=== PATIENT | male | born 1990 | race Caucasian/White ===

== ENCOUNTER 2019-08-06 03:03 | Inpatient (IN) ==
[2019-08-06] MEDS ORDERED: SODIUM CHLORIDE 0.9% 1,000 ML IV STA (03:18)
[2019-08-06] MEDS ORDERED: ONDANSETRON 4 MG/2 ML VIAL IV PRN (04:19)
[2019-08-06] MEDS ORDERED: ACETAMINOPHEN 325 MG TABLET PO PRN (04:19)
[2019-08-06] MEDS ORDERED: DEXTROSE 50% 25 GM/50 ML VIAL IV PRN (04:19)
[2019-08-06] MEDS ORDERED: GLUCAGON 1 MG VIAL IM PRN (04:19)
[2019-08-06] MEDS ORDERED: HYDROmorphone 2 MG/1 ML VIAL IV PRN (04:19)
[2019-08-06] MEDS: SODIUM CHLORIDE 0.9% 1,000 ML IV SCH ×3 (05:16→21:40)
[2019-08-06] MEDS ORDERED: SODIUM CHLORIDE 0.9% 500 ML IV ONE (05:20)
[2019-08-06 06:02] LABS: Basophils % 0.2 % (0.0-0.8); Hematocrit 43.1 VOL% (42.0-52.0); Hemoglobin 13.6 GM/DL (14.0-18.0); Immature Granulocytes % 0.5 %; Immature Granulocytes Absolute 0.08 #; Lymphocytes # 0.8 10*3/uL (1.4-4.0); Lymphocytes % 4.5 % (21.2-54.2); Mean Corpuscular HGB Conc 31.6 GM/DL (32-36); Mean Corpuscular Volume 90.7 FL (87-102); Mean Platelet Volume 11.3 FL (9.6-12.0); Monocytes % 1.8 % (1.7-12.7); Platelet Count 172 T/CUMM (130-400); Red Blood Count 4.75 MC/CUMM (3.8-5.5); Red Cell Distribution Width 15.8 % (9.3-17.3); White Blood Count 17.7 T/CUMM (4-12)
[2019-08-06] MEDS: PIPERACILLIN/TAZOBACTAM 3,375 MG in SODIUM CHLORIDE 0.9% 100 ML IV SCH ×3 (06:19→21:38)
[2019-08-06 06:22] LABS: Alanine Aminotransferase 37 U/L (16-61); Albumin 3.5 G/DL (3.4-5.0); Alkaline Phosphatase 86 U/L (45-117); Amylase 22 U/L (25-115); Aspartate Amino Transferase 37 U/L (0-37); Blood Urea Nitrogen 44 MG/DL (7-18); Estimated Glom Filtration Rate 42 ML/MIN; Glucose 131 MG/DL (74-106); Osmolality,Calculated 280.2 MOS/KG (273-304)
[2019-08-06] MEDS: INSULIN REGULAR 100 UNIT/ML SUBCUT SCH ×3 (06:23→17:53)
[2019-08-06 06:37] LABS: Band Neutrophils 10 % (0-10); Lymphocytes 2 % (20-55); Platelet Estimate Normal; Segmented Neutrophils 85 % (50-85); Total Cells Counted 100
[2019-08-06] MEDS: PANTOPRAZOLE 40 MG VIAL IV SCH (09:39)
[2019-08-06] MEDS: ENOXAPARIN 40 MG/0.4 ML SYRINGE SUBCUT SCH (21:38)
[2019-08-07] MEDS: INSULIN REGULAR 100 UNIT/ML SUBCUT SCH ×4 (00:01→17:56)
[2019-08-07] MEDS: SODIUM CHLORIDE 0.9% 1,000 ML IV SCH ×3 (04:00→23:06)
[2019-08-07] MEDS: PIPERACILLIN/TAZOBACTAM 3,375 MG in SODIUM CHLORIDE 0.9% 100 ML IV SCH ×3 (04:40→21:14)
[2019-08-07 04:49] LABS: Apearance,Urine CLEAR (Clear); Bilirubin,Urine Negative (Negative); Blood, Urine Negative (Negative); Glucose,Urine (UA) Negative (Negative); Ketones,Urine Negative (Negative); Mucus,Urine Occasional /LPF (Occasional); Nitrite,Urine Negative (Negative); Protein,Urine Negative; RBC,Urine 1 /HPF (0-4); Squamous Epithelial Cell,Urine Occasional /HPF (0-10); Urine Color Yellow (Yellow); Urine Specific Gravity 1.015 (1.001-1.035); Urine Urobilinogen < 2.0 EU/DL (0.2-1.0); WBC,Urine 1 /HPF (0-6)
[2019-08-07 05:37] LABS: Basophils % 0.2 % (0.0-0.8); Eosinophils % 0.3 % (0.00-10.9); Hematocrit 35.5 VOL% (42.0-52.0); Hemoglobin 10.9 GM/DL (14.0-18.0); Immature Granulocytes % 0.6 %; Immature Granulocytes Absolute 0.07 #; Lymphocytes # 1.6 10*3/uL (1.4-4.0); Lymphocytes % 14.5 % (21.2-54.2); Mean Corpuscular HGB Conc 30.7 GM/DL (32-36); Mean Corpuscular Volume 91.5 FL (87-102); Monocytes % 4.8 % (1.7-12.7); Neutrophils % 79.6 % (38.7-73.9); Platelet Count 157 T/CUMM (130-400); Red Blood Count 3.88 MC/CUMM (3.8-5.5); Red Cell Distribution Width 15.6 % (9.3-17.3); White Blood Count 10.9 T/CUMM (4-12)
[2019-08-07 06:07] LABS: Band Neutrophils 1 % (0-10); Lymphocytes 17 % (20-55); Platelet Estimate Decreased; Polychromasia Few; Segmented Neutrophils 79 % (50-85); Total Cells Counted 100
[2019-08-07 06:11] LABS: Bilirubin,Total 1.3 MG/DL (0.2-1.0); Calcium 8.2 MG/DL (8.5-10.1); Osmolality,Calculated 278.8 MOS/KG (273-304); Total Protein 7.5 G/DL (6.4-8.3)
[2019-08-07] MEDS: PANTOPRAZOLE 40 MG VIAL IV SCH (11:16)
[2019-08-07] MEDS: ENOXAPARIN 40 MG/0.4 ML SYRINGE SUBCUT SCH (23:06)
[2019-08-08] MEDS: INSULIN REGULAR 100 UNIT/ML SUBCUT SCH ×5 (02:40→23:51)
[2019-08-08] MEDS: SODIUM CHLORIDE 0.9% 1,000 ML IV SCH (05:54)
[2019-08-08] MEDS: PIPERACILLIN/TAZOBACTAM 3,375 MG in SODIUM CHLORIDE 0.9% 100 ML IV SCH (06:27)
[2019-08-08 07:21] LABS: Basophils % 0.3 % (0.0-0.8); Eosinophils # 0.1 10*3/uL (0.0-0.87); Eosinophils % 0.7 % (0.00-10.9); Hematocrit 36.2 VOL% (42.0-52.0); Hemoglobin 11.3 GM/DL (14.0-18.0); Immature Granulocytes Absolute 0.07 #; Lymphocytes # 2.2 10*3/uL (1.4-4.0); Lymphocytes % 30.9 % (21.2-54.2); Mean Corpuscular HGB Conc 31.2 GM/DL (32-36); Mean Corpuscular Volume 90.7 FL (87-102); Mean Platelet Volume 11.1 FL (9.6-12.0); Monocytes % 6.6 % (1.7-12.7); Neutrophils % 60.5 % (38.7-73.9); Platelet Count 145 T/CUMM (130-400); Red Blood Count 3.99 MC/CUMM (3.8-5.5); Red Cell Distribution Width 15.7 % (9.3-17.3)
[2019-08-08 07:36] LABS: Calcium 8.3 MG/DL (8.5-10.1); Osmolality,Calculated 275.5 MOS/KG (273-304)
[2019-08-08 08:34] LABS: Atypical Lymphocytes Few; Band Neutrophils 10 % (0-10); Lymphocytes 35 % (20-55); Nucleated Red Blood Cells 1 (0-5); Segmented Neutrophils 51 % (50-85); Total Cells Counted 100
[2019-08-08 08:35] LABS: Hypochromasia 1+; Microcytosis 1+; Ovalocytes Slight; Polychromasia Slight
[2019-08-08 08:36] LABS: Platelet Estimate Adequate
[2019-08-08] MEDS: CIPROFLOXACIN 500 MG TABLET PO SCH ×2 (09:26→20:57)
[2019-08-08] MEDS: PANTOPRAZOLE 40 MG VIAL IV SCH (09:27)
[2019-08-08] MEDS ORDERED: metroNIDAZOLE 500 MG TABLET PO SCH (14:00)
[2019-08-08] MEDS: metroNIDAZOLE 500 MG TABLET PO SCH (18:10)
[2019-08-08] MEDS: ENOXAPARIN 40 MG/0.4 ML SYRINGE SUBCUT SCH (22:45)
[2019-08-09] MEDS: metroNIDAZOLE 500 MG TABLET PO SCH ×2 (01:03→09:10)
[2019-08-09] MEDS: INSULIN REGULAR 100 UNIT/ML SUBCUT SCH ×2 (06:54→12:47)
[2019-08-09 08:19] LABS: Basophils % 0.4 % (0.0-0.8); Eosinophils % 0.5 % (0.00-10.9); Hematocrit 38.7 VOL% (42.0-52.0); Hemoglobin 12.1 GM/DL (14.0-18.0); Immature Granulocytes % 1.3 %; Lymphocytes # 2.3 10*3/uL (1.4-4.0); Lymphocytes % 28.9 % (21.2-54.2); Mean Corpuscular HGB Conc 31.3 GM/DL (32-36); Mean Corpuscular Volume 90.8 FL (87-102); Monocytes % 5.1 % (1.7-12.7); Neutrophils % 63.8 % (38.7-73.9); Platelet Count 150 T/CUMM (130-400); Red Blood Count 4.26 MC/CUMM (3.8-5.5); Red Cell Distribution Width 15.6 % (9.3-17.3); White Blood Count 7.8 T/CUMM (4-12)
[2019-08-09 08:41] LABS: Atypical Lymphocytes Few; Eosinophils 1 % (0-10); Hypochromasia 1+; Lymphocytes 28 % (20-55); Microcytosis 1+; Ovalocytes Slight; Segmented Neutrophils 64 % (50-85); Total Cells Counted 100
[2019-08-09] MEDS: PANTOPRAZOLE 40 MG VIAL IV SCH (08:41)
[2019-08-09 08:42] LABS: Platelet Estimate Adequate
[2019-08-09] MEDS: CIPROFLOXACIN 500 MG TABLET PO SCH (08:42)
[2019-08-09 12:53] VITALS: BP 133/83
== END 2019-08-09 12:36 | disposition home or self-care (01) | DRG 254 ==
LOC: N.ED 03:03 → N.EDINP 03:14 → N.3E 03:43
PROVIDERS: ADMIT Student in an Organized Health Care Education/Training Program; ATTEND Student in an Organized Health Care Education/Training Program